=== PATIENT | male | born 1970 | race Caucasian/White ===

== ENCOUNTER 2023-02-25 08:42 | Emergency (ER) | payer OTHER ==
[2023-02-25 09:49] LABS: Hematocrit 42.9 % (39.6-49.0); MCV 91.2 fL (80-100); MPV 8.7 fL (7.6-11.3); Platelets 221 thou/uL (152-406)
[2023-02-25 10:00] LABS: Potassium 4.1 mEq/L (3.5-5.1)
--- NOTE | 2023-02-25 10:47 | RAD REPORT ---
EXAM DESCRIPTION: CT - Soft Tissue Neck W/Contr CLINICAL HISTORY: Deformity;Swelling COMPARISON: <Comparisons> TECHNIQUE All CT scans are performed using dose optimization technique as appropriate and may includ e automated exposure control or mA/KV adjustment according to patient size. FINDINGS: There is a significant abnormal appearance to the pharynx. There is irregular thickening o f the pharyngeal tissues at the level of the tongue base, greater on the right measuring to 20 mm in maximum thickness. Overall masslike lesion along the right tongue base measures 4.6 x 3.8 cm. This ab normal soft tissue thickening extends in a relatively circumferential fashion including the left aspe ct of the tongue base as well, however to a less severe extent than on the right. Several enlarged ne crotic lymph nodes are seen at level II measuring 19 mm maximally. Level II lymphadenopathy also pres ent measuring up to 11 mm. Normal appearance of the thyroid gland. IMPRESSION: Markedly irregular and abnormal soft tissue circumferential thickening at the level of t he tongue base present, greater on the right with adjacent lymphadenopathy. This is highly concerning for malignancy. Recommend direct visualization.
--- NOTE | 2023-02-25 11:07 | ER ---
Nurse's Notes [facility] Name: Ronnie Villanueva Age: 52 yrs Sex: Male : 1970 Arrival Date: 02/25/2023 Time: 08:42 Bed 20 Private MD: Diagnosis: pharyngeal mass Presentation: 02/25 09:05 Chief complaint: Patient states: has knot to right side of neck X 3 months, was seen at doctor for it and was told it was strep , he has pain when he swallows. Coronavirus screen: At this time, the client does not indicate any symptoms associated with coronavirus-19. Ebola Screen: Patient negative for fever greater than or equal to 101.5 degrees Fahrenheit, and additional compatible Ebola Virus Disease symptoms Patient denies exposure to infectious person. Patient denies travel to an Ebola-affected area in the 21 days before illness onset. No symptoms or risks identified at this time. Initial Sepsis Screen: Does the patient meet any 2 criteria? No. Patient's initial sepsis screen is negative. Does the patient have a suspected source of infection? No. Patient's initial sepsis screen is negative. Risk Assessment: Do you want to hurt yourself or someone else? Patient reports no desire to harm self or others. Onset of symptoms was November 2022. 09:05 Method Of Arrival: Ambulatory 09:05 Acuity: ROB 3 iw Historical: - Allergies: 09:06 PENICILLINS; iw - PMHx: 09:07 CVA; iw - PSHx: 09:07 None; iw - Immunization history:: Adult Immunizations. - Social history:: Smoking status: Patient reports the use of cigarette tobacco products, smokes one pack cigarettes per day. Screenin:14 [facility] ED Fall Risk Assessment (Adult) Score/Fall Risk Level 0 - 2 = Low Risk nj1 Oriented to surroundings, Maintained a safe environment, Hourly rounding (assess needs \T\ fall precautionary measures) done. Abuse screen: Denies threats or abuse. Denies injuries from another. Nutritional screening: No deficits noted. Tuberculosis screening: No symptoms or risk factors identified. Assessment: 09:15 General: Appears in no apparent distress. comfortable, Behavior is calm, cooperative, nj1 appropriate for age. 09:15 Pain: Complains of pain in throat Pain currently is 8 out of 10 on a pain scale. Neuro: nj1 Level of Consciousness is awake, alert, obeys commands, Oriented to person, place, time, situation. Cardiovascular: Patient's skin is warm and dry. Respiratory: Airway is patent Respiratory effort is even, unlabored. EENT: Reports difficulty swallowing painful. 11:05 Reassessment: No changes from previously documented assessment. Patient and/or family mb9 updated on plan of care and expected duration. Pain level reassessed. Patient is alert, oriented x 3, equal unlabored respirations, skin warm/dry/pink. Vital Signs: 09:05 BP 137 / 95; Pulse 91; Resp 16; Temp 98.1; Pulse Ox 100% ; Weight 59.87 kg; iw 11:04 BP 130 / 84; Pulse 85; Resp 16; Pulse Ox 100% on R/A; mb9 ED Course: 08:49 Patient arrived in ED. mg5 08:59 Jovanna Victoria PA-C is PHCP. sb4 08:59 Rigoberto Schaffer DO is Attending Physician. sb4 08:59 Rigoberto Schaffer DO is Attending Physician. sb4 09:06 Triage completed. iw 09:11 Marilu Luna, RN is Primary Nurse. nj1 09:15 Arm band placed on. nj1 09:15 Patient has correct armband on for positive identification. Bed in low position. Call nj1 light in reach. Provided Education on: call light, fall precautions. 09:30 Missed attempt(s): 20 gauge in left antecubital area. Bleeding controlled, band aid nj1 applied, catheter tip intact. 09:33 Inserted saline lock: 22 gauge in right antecubital area, using aseptic technique. nj1 Blood collected. 10:25 CT Soft Tissue Neck W/contr In Process Unspecified. EDMS 11:04 Rosario Mccarthy MD is Referral Physician. sb4 11:04 Ary Byrne MD is Referral Physician. sb4 11:05 No provider procedures requiring assistance completed. mb9 11:14 IV discontinued, intact, bleeding controlled, No redness/swelling at site. Pressure mb9 dressing applied. Administered Medications: No medications were administered Medication: 10:52 VIS not applicable for this client. mb9 Outcome: 11:07 Discharge ordered by . sb4 11:14 Discharged to home ambulatory, mb9 11:14 Condition: stable 11:14 Discharge instructions given to patient, Instructed on discharge instructions, follow up and referral plans. Demonstrated understanding of instructions, follow-up care, 11:14 Patient left the ED. mb9 Signatures: Dispatcher [employer] Lynn Hall, RN Jovanna Barnett, PA-C PA-C sb4 Radha Rogers RN RN mb9 Marilu Luna RN RN nj1 Makeda Sanderson mg5 Corrections: (The following items were deleted from the chart) 09:06 09:05 BP 137 / 95; Pulse 91bpm; iw iw 09:06 09:06 Allergies: No Known Allergies; iw iw 09:07 09:05 BP 137 / 95; Pulse 91bpm; Resp 16bpm; Pulse Ox 100%; Temp 98.1F; iw iw
--- NOTE | 2023-02-25 11:07 | EDPHYS ---
Physician Documentation [facility] Name: Ronnie Villanueva Age: 52 yrs Sex: Male : 1970 Arrival Date: 02/25/2023 Time: 08:42 Bed 20 Private MD: ED Physician Rigoberto Schaffer HPI: 02/25 09:48 This 52 yrs old Male presents to ER via Ambulatory with complaints of Neck Swelling. sb4 09:48 Patient states a lump on the right side of his neck for 3 months now. He states he was sb4 initially told he had strep throat and was prescribed a 10-day course of antibiotics. He states that the swelling has not improved and now it is painful for him to swallow solids and liquids. He states now he feels like the pain is radiating up to his ear. He is a smoker and endorses history of CVA. Only takes baby aspirin daily. Historical: - Allergies: 09:06 PENICILLINS; iw - PMHx: 09:07 CVA; iw - PSHx: 09:07 None; iw - Immunization history:: Adult Immunizations. - Social history:: Smoking status: Patient reports the use of cigarette tobacco products, smokes one pack cigarettes per day. ROS: 09:48 Constitutional: Negative for fever, chills, and weight loss, sb4 09:48 ENT: Positive for sore throat, Odynophagia, 09:48 Neck: Positive for swelling, of the right submandibular area, 09:48 All other systems are negative, Exam: 09:51 Constitutional: This is a well developed, well nourished patient who is awake, alert, sb4 and in no acute distress. Head/Face: Normocephalic, atraumatic. Eyes: Extra-ocular motions intact. Periorbital areas with no swelling, redness, or edema. Cardiovascular: Regular rate and rhythm with a normal S1 and S2. Respiratory: Lungs have equal breath sounds bilaterally, clear to auscultation and percussion. No rales, rhonchi or wheezes noted. No increased work of breathing, no retractions or nasal flaring. Abdomen/GI: Soft, non-tender, no distension. Skin: Warm, dry with normal turgor. Normal color with no rashes, no lesions, and no evidence of cellulitis. MS/ Extremity: Pulses equal, no cyanosis. Neurovascular intact. Full, normal range of motion. 09:51 ENT: Posterior pharynx: no acute changes, Airway: normal, no evidence of obstruction, Tonsils: are normal in appearance, Uvula: normal, midline, non-edematous, swelling, is not appreciated, erythema, is not appreciated, exudate, is not appreciated, peritonsillar mass, is not appreciated, Dental exam: dental caries, that is mild, diffusely, missing teeth, diffusely, 09:51 Neck: External neck: mass, that is small, of the right submandibular area, that is tender to palpation, Vital Signs: 09:05 BP 137 / 95; Pulse 91; Resp 16; Temp 98.1; Pulse Ox 100% ; Weight 59.87 kg; iw 11:04 BP 130 / 84; Pulse 85; Resp 16; Pulse Ox 100% on R/A; mb9 MDM: 09:15 Patient medically screened. sb4 09:51 Differential diagnosis: lymphadenopathy, dental abscess, mass. sb4 11:03 Data reviewed: vital signs, nurses notes, lab test result(s), radiologic studies, and sb4 as a result, I will discharge patient. Consideration of Admission/Observation Escalation of care including admission/observation considered. Management of patient was discussed with the following: Gin Pole Operator: called ENT, Dr. Mccarthy, awaiting call back. Counseling: I had a detailed discussion with the patient and/or guardian regarding the historical points, exam findings, and any diagnostic results supporting the discharge/admit diagnosis, lab results, radiology results, the need for outpatient follow up, an ENT specialist. 02/25 09:24 Order name: CBC w/o diff; Complete Time: 09:55 sb4 02/25 09:24 Order name: BMP; Complete Time: 10:00 sb4 02/25 09:24 Order name: CT Soft Tissue Neck W/contr; Complete Time: 10:51 sb4 02/25 09:24 Order name: IV Start; Complete Time: 09:40 sb4 Administered Medications: No medications were administered Disposition: 10:26 I was immediately available on-site in the Emergency Department for consultation in the ms3 care of the patient. Disposition Summary: 02/25/23 11:07 Discharge Ordered Notes: Location: Home sb4 Problem: an ongoing problem sb4 Symptoms: are unchanged sb4 Condition: Stable sb4 Diagnosis - pharyngeal mass sb4 Followup: sb4 - With: Rosario Mccarthy MD - When: 2 - 3 days - Reason: Further diagnostic work-up, Recheck today's complaints, Re-evaluation by your physician Followup: sb4 - With: Ary Byrne MD - When: 2 - 3 days - Reason: Further diagnostic work-up, Recheck today's complaints, Re-evaluation by your physician Discharge Instructions: - Discharge Summary Sheet sb4 - Throat Cancer sb4 Forms: - Medication Reconciliation Form sb4 - Thank You Letter sb4 - Antibiotic Education sb4 - Prescription Opioid Use sb4 - Patient Portal Instructions sb4 - Leadership Thank You Letter sb4 Signatures: Dispatcher [employer] Lynn Hall, WOODY RN iw Rigoberto Schaffer DO DO ms3 Jovanna Victoria PA-C PACash sb4 Corrections: (The following items were deleted from the chart) 09:06 09:06 Allergies: No Known Allergies; jerry
[2023-02-25 11:29] VITALS: TEMP 98.1; O2SAT 100
[2023-02-25 11:34] VITALS: BP 130/84
== END 2023-02-25 11:14 | disposition home or self-care (01) ==
LOC: ER 08:42
DX: R22.1 Localized swelling, mass and lump, neck (principal); J39.2 Other diseases of pharynx; J02.0 Streptococcal pharyngitis; Z72.0 Tobacco use; Z88.0 Allergy status to penicillin
CPT/HCPCS: 80048; 36415; 85027; 70491; 99283; Q9967

== ENCOUNTER 2023-03-29 08:46 | Day surgery (SDC) | payer OTHER ==
[2023-03-29] MEDS ORDERED: propofoL 1,000 MG/100 ML VIAL IV ONE (08:48)
[2023-03-29] MEDS ORDERED: REMIFENTANIL HCL 1 MG VIAL IV ONE (08:49)
[2023-03-29] MEDS ORDERED: SUCCINYLCHOLINE 20 MG/ML (10 ML) IV ONE (08:49)
[2023-03-29] MEDS ORDERED: ONDANSETRON 4 MG/2 ML VIAL ONE (08:55)
[2023-03-29] MEDS ORDERED: LIDOCAINE 2% MPF 5 ML VIAL ONE (08:55)
[2023-03-29] MEDS ORDERED: FENTANYL CITR 100 MCG/2 ML ONE ×2 (08:55→11:47)
[2023-03-29] MEDS ORDERED: NS 0.9% VIAL 20 ML ONE (08:56)
[2023-03-29] MEDS ORDERED: KETOROLAC 30 MG/ML INJ ONE (08:56)
[2023-03-29] MEDS ORDERED: ROCURONIUM 50 MG/5 ML VIAL IV ONE (08:56)
[2023-03-29] MEDS ORDERED: Ringers Lactate 1,000 ML IV ONE (08:56)
[2023-03-29] MEDS ORDERED: dexAMETHasone 10 MG/ML VIAL ONE (08:56)
[2023-03-29] MEDS ORDERED: MIDAZOLAM HCL 2 MG/2 ML INJ ONE (08:56)
[2023-03-29 09:00] LABS: Absolute Lymphocytes (CBC) 2.4 K/uL (0.7-4.9); Hematocrit 44.2 % (39.6-49.0); Lymphocytes % 23.1 % (15.3-44.8); MCV 92.1 fL (80-100); MPV 8.6 fL (7.6-11.3); Platelets 294 thou/uL (152-406)
--- NOTE | 2023-03-29 09:09 | RAD REPORT ---
EXAM DESCRIPTION: Isabell Hall (2 Views)03/29/2023 8:54 am CLINICAL HISTORY: Tongue cancer. Preop COMPARISON: None FINDINGS: The lungs appear clear of acute infiltrate. The heart is normal size IMPRESSION: No acute abnormalities displayed
[2023-03-29 09:18] LABS: Potassium 4.1 mEq/L (3.5-5.1)
[2023-03-29] MEDS ORDERED: OXYMETAZOLINE HCL 0.05% 15ML NAS ONE (09:28)
[2023-03-29] MEDS ORDERED: EPINEPHRINE 1 MG/ML VIAL ONE (09:29)
[2023-03-29] MEDS ORDERED: LIDOCAINE HCL/EPINEPHRINE 20 ML MDV ONE (09:29)
[2023-03-29 09:32] VITALS: O2SAT 100
[2023-03-29] MEDS ORDERED: ACETAMINOPHEN 160 MG/5 ML UCUP ONE (12:16)
[2023-03-29 13:10] VITALS: TEMP 97
[2023-03-29 13:22] VITALS: BP 115/67
--- NOTE | 2023-04-01 18:27 | OP ---
Date of Procedure: 03/29/2023 Surgeon: KELLY GOODSON Preoperative Diagnosis: Base of tongue neoplasm-uncertain behavior. 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 Procedures: 1. Flexible bronchoscopy. 2. Direct laryngoscopy with telescope and biopsies of bilateral base of tongue with frozen section analysis. Anesthesia: General endotracheal anesthesia was administered. Estimated Blood Loss: Less than 5 mL. Specimens: Bilateral base of tongue specimens was obtained with cup forceps biopsies and initial frozen section analysis revealed bilateral squamous cell carcinoma. Permanent section results forthcoming. Complications: None. Disposition: Stable. The patient tolerated procedure well. Indications For Procedure: The patient is a pleasant 52-year-old male, who presented to my outpatient clinic after presenting initially to the emergency room with severe dysphagia. A CT scan of the neck was performed while in the emergency room, which revealed soft tissue mass involving base of tongue and a necrotic right level 2 lymph node. He then presented to my office in the outpatient setting and during flexible laryngoscopy, I noticed a very large diffuse exophytic tumor involving the base of tongue, most likely involving bilateral base of tongue. These were indications to bring the patient to operative suite for the above-mentioned procedures. He understood, all questions were answered. Risks versus benefits, complications were explained in detail. A consent form was signed which was placed in the chart. Description Of Procedure: The patient was transferred from the preoperative holding area to the operative suite by Department of Anesthesia, placed on the operating room table supine, sedated and intubated in normal fashion. The patient was intubated initially with a size #8 tube. The table was rotated 90 degrees. A flexible bronchoscope was introduced into the endotracheal tube and advanced to the level of the charisse. Right and left mainstem bronchi were visualized and there was profuse amount of mucus which was suctioned and I advanced to the left lingula and smaller segment bronchioles. A moderate amount of mucus was suctioned, but I did not detect any mucosal ulceration or neoplasm. The scope was then withdrawn back to the charisse and advanced into the right mainstem bronchi, advanced to the lower segment bronchioles, and moderate amount of mucus was removed with the suction. Again, I did not detect any discrete mucosal lesions or ulcerations. The scope was completely removed and the patient's endotracheal tube was connected back to the circuit. Next, the neck was extended slightly and a dental guard was placed over the upper teeth. The size 8 ET tube was removed and a smaller ET tube was placed by the VETERINARY SURGEON and secured with tape to lower lip. A rigid laryngoscope was introduced into the right oral commissure and directed along the endotracheal tube and suspended from the [place] stand. Examination of the larynx did not reveal any evidence of mucosal lesions involving the true or false vocal folds. The patient has mild erythema of the true vocal folds, but otherwise negative exam. The areas of the epiglottis, hypopharynx, posterior glottic area, posterior pharyngeal wall, and piriform sinuses were clear. The scope was then de- suspended from the [place] stand and I withdrew the scope back to the level of the vallecula and base of tongue. There was diffuse tumor involving bilateral base of tongue and I took multiple specimens utilizing a cup forceps and this was submitted to pathology for evaluation. Initial frozen section analysis results revealed squamous cell carcinoma in bilateral base of tongue. The scope was then removed completely from the oral cavity and bimanual palpation exam of the oral cavity was performed. I did not detect any other areas of mucosal lesion or palpable mass. Right level 2 lymph node was easily palpable and measured at least 2 cm. The patient tolerated the procedure well, will be discharged home. He will follow up in 1 week for a recheck and further recommendations. GABY/JACOB Voice ID: [id number] Report ID: [id number] LILI
== END 2023-03-29 13:00 | disposition home or self-care (01) ==
LOC: OR 08:46
PROVIDERS: ATTEND Otolaryngology Facial Plastic Surgery
PROC: 0CBM8ZX Excision of Pharynx, Via Natural or Artificial Opening Endoscopic, Diagnostic (ICD-10-PCS; principal; 2023-03-29 09:15)
PROC: 0BJ08ZZ Inspection of Tracheobronchial Tree, Via Natural or Artificial Opening Endoscopic (ICD-10-PCS; 2023-03-29 09:15)
DX: C01 Malignant neoplasm of base of tongue (principal); Z86.73 Personal history of transient ischemic attack (TIA), and cerebral infarction without residual deficits
CPT/HCPCS: 85025; 80048; 36415; 88331 ×2; 88305; 71046; 31536; 31622; J2704; A4216; J2001; J2250; J3010 ×2; J1100; J0171; J2405; J3490; J7120; 88332

== ENCOUNTER 2023-06-16 12:59 | Emergency (ER) | payer OTHER ==
[2023-06-16] MEDS ORDERED: IPRATROPIUM BROM 0.5MG/2.5ML ONE (13:21)
[2023-06-16] MEDS ORDERED: THIAMINE 200 MG/2 ML INJ ONE (13:21)
[2023-06-16] MEDS ORDERED: NA CHLORIDE 0.9% 500 ML ONE (13:21)
[2023-06-16] MEDS ORDERED: ALBUTEROL 2.5 MG/3 ML NEB SOL ONE (13:21)
[2023-06-16] MEDS ORDERED: NA CHLORIDE 0.9% 1,000 ML ONE (13:22)
[2023-06-16 13:49] LABS: Absolute Lymphocytes (CBC) 0.1 K/uL (0.7-4.9); Absolute Monocytes 0.5 K/uL (0.1-1.3); Absolute Neutrophil 1.6 K/uL (1.8-8.0); Hematocrit 33.5 % (39.6-49.0); Lymphocytes % 2.5 % (15.3-44.8); MCH 32.4 pg (27.0-35.0); MCHC 32.9 g/dL (32.0-36.0); MCV 98.5 fL (80-100); MPV 8.4 fL (7.6-11.3); Monocytes % 25.2 % (3.3-12.3); Neutrophils % 72.3 % (41.7-73.7); Nucleated Red Blood Cells % 0.4 % (0-0); Platelets 215 thou/uL (152-406); Red Cell Distribution Width 17.6 % (12.1-15.2)
[2023-06-16] MEDS ORDERED: Magnesium Sulfate 2gm IVPB 2 G/50 ML BAG IV ONE (13:55)
[2023-06-16 13:56] LABS: PT Prothrombin Time 17.9 SECONDS (9.5-12.5); PTT, Activated Partial Thromb 32.7 SECONDS (24.3-36.9); Protime INR 1.65
[2023-06-16 14:00] LABS: Arterial Blood Carboxyhemoglob 0.9 % (0-1.5); Blood Gas Oxyhemoglobin 86.9 % (94-97); Blood Gas THB 11.4 g/dl (12-18); Blood O2 Saturation 89.1 % (92-98.5)
[2023-06-16 14:17] LABS: Albumin 2.6 g/dL (3.4-5.0); Albumin/Globulin Ratio 0.5 (1.1-1.8); Anion Gap 13.3 mEq/L (5.0-15.0); Bilirubin Total 0.6 mg/dL (0.2-1.0); Potassium 4.3 mEq/L (3.5-5.1); Protein, Total 7.6 g/dL (6.4-8.2)
--- NOTE | 2023-06-16 14:37 | ER ---
Nurse's Notes [facility] Name: Ronnie Villanueva Age: 53 yrs Sex: Male : 1970 Arrival Date: 06/16/2023 Time: 12:59 Bed 20 Private MD: Diagnosis: acute hypoxic and hypercapneic respiratory failure;Adult failure to thrive Presentation: 06/15 13:00 Chief complaint: EMS states: FAILURE TO THRIVE. ONLY ETOH, NO FOOD, x1 WK SINCE bp STARTING XRT. Coronavirus screen: At this time, the client does not indicate any symptoms associated with coronavirus-19. Ebola Screen: No symptoms or risks identified at this time. Initial Sepsis Screen: Does the patient meet any 2 criteria? Altered Mental Status. HR > 90 bpm. Yes Does the patient have a suspected source of infection? No. Patient's initial sepsis screen is negative. Risk Assessment: Do you want to hurt yourself or someone else? Patient reports no desire to harm self or others. Onset of symptoms is unknown. Care prior to arrival: IV initiated. 20 GA, in the left wrist, Glucose check: 172. 13:00 Method Of Arrival: EMS: [facility] bp 13:00 Acuity: ROB 2 bp Triage Assessment: 13:02 General: Appears distressed, ill, unkempt, Behavior is anxious, CONFUSED. Pain: Denies bp pain. Historical: - Allergies: 13:02 PENICILLINS; bp - PMHx: 13:02 CVA; THROAT CANCER (CVA); Alcoholism; bp - Immunization history:: Adult Immunizations unknown. - Social history:: Smoking status: Patient reports the use of cigarette tobacco products, unknown amount. Screenin:03 [facility] ED Fall Risk Assessment (Adult) History of falling in the last 3 months, bp including since admission No falls in past 3 months (0 pts). Abuse screen: Denies threats or abuse. Denies injuries from another. Nutritional screening: No deficits noted. Tuberculosis screening: No symptoms or risk factors identified. Assessment: 13:03 General: SEE TRIAGE NOTE. bp 14:03 Reassessment: No changes from previously documented assessment. Patient is alert, bp oriented x 3, equal unlabored respirations, skin warm/dry/pink. 15:00 Reassessment: BIPAP IN PLACE 18/8, 18 RATE, FIO2 50%. bp 16:00 Reassessment: ADMIT DEFERRED FOR TRANSFER. bp 17:00 Reassessment: CT PE ON HOLD PENDING ADVANCED LINE PLACEMENT. Respiratory: Airway is bp patent Respiratory effort is labored, Patient placed on BiPAP: Inspiratory Pressure: 18 Expiratory (EPAP) Pressure: 8 FiO2%: 50 Respiratory Rate: 18. 18:13 Reassessment: pt to CT via stretcher with NRB mask. kc6 18:42 General: PT RETURNED FROM CT. bp 19:00 General: Appears in no apparent distress. comfortable, well developed, Behavior is pf1 calm, cooperative, appropriate for age, quiet. 19:00 Pain: Complains of pain in mouth Pain currently is 5 out of 10 on a pain scale. Neuro: pf1 No deficits noted. Level of Consciousness is awake, alert, obeys commands, Oriented to person, place, time, situation. Cardiovascular: Capillary refill < 3 seconds Patient's skin is warm and dry. Rhythm is sinus tachycardia. Respiratory: Reports shortness of breath at rest on exertion Airway is patent Respiratory effort is even, labored, Respiratory pattern is symmetrical, tachypnea Breath sounds are clear bilaterally. GI: Abdomen is flat, non-distended, Bowel sounds Parent/caregiver reports the patient having decrease in appetite. : No deficits noted. No signs and/or symptoms were reported regarding the genitourinary system. EENT: Reports pain in mouth and throat pain. 20:00 Reassessment: Patient appears in no apparent distress at this time. No changes from pf1 previously documented assessment. Patient and/or family updated on plan of care and expected duration. Pain level reassessed. 20:50 Reassessment: patient keeps pulling off BIPAP mask, not maintaining oxygen saturation. pf1 Notified Dr. Barton and respiratory. 21:00 Reassessment: Patient appears in no apparent distress at this time. Patient and/or pf1 family updated on plan of care and expected duration. Pain level reassessed. 21:05 Reassessment: patient report given to Donaldo with [facility]. pf1 21:11 Reassessment: Patient maintaining oxygenation saturation at 100% on BIPAP. Patient pf1 being transferred at this time with [facility]. Vital Signs: 13:00 BP 130 / 90; Pulse 140; Resp 24; Temp 97.5; Pulse Ox 82% on R/A; bp 13:18 Weight 54 kg (M); as6 14:01 BP 151 / 94; Pulse 130; Resp 32; Pulse Ox 100% on BiPAP; FiO2 50 %; bp 15:00 BP 109 / 80; Pulse 106; Resp 32; Pulse Ox 100% ; bp 16:00 BP 124 / 84; Pulse 121; Resp 30; Pulse Ox 100% ; bp 17:13 BP 119 / 75; Pulse 111; Resp 21 S; Pulse Ox 99% on BiPAP; kc6 17:50 BP 108 / 80; Pulse 104; Resp 28; Pulse Ox 100% ; bp 18:42 BP 124 / 79; Pulse 112; Resp 28; Pulse Ox 100% ; bp 19:30 BP 115 / 84; Pulse 106; Resp 27; Temp 98; Pulse Ox 100% on BiPAP; Pain 5/10; pf1 20:30 BP 131 / 78; Pulse 110; Resp 30; Pulse Ox 99% on BiPAP; pf1 21:20 BP 114 / 68; Pulse 115; Resp 28; Temp 98.1; Pulse Ox 97% on BiPAP; pf1 19:30 Pain Scale: Adult pf1 ED Course: 13:00 Patient arrived in ED. bp 13:02 Triage completed. bp 13:02 Arm band placed on. bp 13:03 Patient has correct armband on for positive identification. bp 13:03 Maintain EMS IV. Dressing intact. Good blood return noted. Site clean \T\ dry. Gauge \T\ bp site: 20 GA LEFT WRIST. 13:06 [facility]ovanna Victoria [facility]C [facility]. sb4 13:06 Rigoberto Schaffer DO is Attending Physician. sb4 13:33 Mick Valdez, RN is Primary Nurse. bp 13:33 ABG Sent. bp 13:33 Blood Culture Adult (2) Sent. bp 13:33 CBC with Diff Sent. bp 13:33 CMP Sent. bp 13:33 Lactate w/ 2H reflex if indic. Sent. bp 13:33 Protime (+inr) Sent. bp 13:33 Ptt, Activated Sent. bp 13:34 EKG done, by ED staff, reviewed by Jovanna Victoria PA-C. Inserted saline lock: 22 gauge in bp right wrist, using aseptic technique. Blood collected. 14:02 Client placed on continuous cardiac and pulse oximetry monitoring. NIBP monitoring bp applied. monitor car operator on. 14:02 O2 via BIPAP 18/8, RATE 18, FIO2 50%. bp 14:35 Aida Garcia MD is Hospitalizing Provider. sb4 15:03 Chest Single View XRAY In Process Unspecified. EDMS 15:15 SARS RAPID Sent. bp 15:15 Flu Sent. bp 15:15 COVID swab sent to lab. Flu and/or RSV swab sent to lab. bp 16:01 Provided Education on: N/A. bp 16:01 No provider procedures requiring assistance completed. Patient admitted, IV remains in bp place. 16:05 initiated a transfer with Estrella from the [facility]. eb 16:34 connected the spreader box operator ammonia distiller for [facility] with Jovanna LAZARO for patient eb transfer consultation. 17:13 Missed attempt(s): 22 gauge in right forearm. Missed attempt(s): 20 gauge in left kc6 forearm. Missed attempt(s): 20 gauge in left forearm. 17:40 Accessed peripheral vein via ultrasound, utilizing dynamic ultrasound technique Blood as6 collected. using per hospital protocol. Clean \T\ dry. Dressing intact. Good blood return. Flushes easily. 18g 10cm midline to right upper arm . 17:49 Accessed 18 GA R CEPHALIC MIDLINE. bp 18:35 Chest For PE Angio CT In Process Unspecified. EDMS 18:36 Soft Tissue Neck W/Contr CT In Process Unspecified. EDMS 18:58 Received call from [facility] on patient CT results. Results pending. ty 19:07 Called [facility], spoke with Lissa, on patient update. CT results in. ty 19:49 [facility] called for transport. 1.5 - 2 Hour wait time. ty 19:57 [facility] called for transport. ETA 30 Minutes. ty Administered Medications: 13:34 Drug: NS 0.9% IV (30 ml/kg) 30 ml/kg IV at bolus once; Sepsis Protocol Route: IV; Rate: bp bolus; Site: right wrist; 14:45 Follow up: IV Status: Completed infusion; IV Intake: 1620ml bp 13:34 Drug: Thiamine IV 100 mg IV at calculated rate once Route: IV; Rate: calculated rate; bp Site: right wrist; 14:45 Follow up: IV Status: Completed infusion; IV Intake: 100ml bp 13:34 Drug: DuoNeb Nebulize (3:1) (2.5 mg - 0.5 mg) 3 ml Nebulizer once Route: Nebulizer; bp 14:45 Follow up: Response: No adverse reaction bp 13:59 Drug: Magnesium Sulfate IVPB 2 grams IVPB once over 2 hrs Route: IVPB; Infused Over: 2 bp hrs; Site: right wrist; 14:54 Follow up: IV Status: Completed infusion; IV Intake: 50ml bp 14:53 Drug: levofloxacin IVPB 750 mg 150 ml IVPB once over 90 mins Volume: 150 ml; Route: bp IVPB; Infused Over: 90 mins; Site: right wrist; 16:01 Follow up: IV Status: Completed infusion; IV Intake: 150ml bp 19:47 Drug: Clindamycin IVPB 600 mg IVPB once over 30 mins; (mix in 50 mL) Route: IVPB; pf1 Infused Over: 30 mins; Site: right upper arm; 20:17 Follow up: Response: No adverse reaction; Marked relief of symptoms; IV Status: pf1 Completed infusion; IV Intake: 50ml Medication: 16:01 VIS not applicable for this client. bp Intake: 14:45 IV: 100ml; Total: 100ml. bp 14:45 IV: 1620ml; Total: 1720ml. bp 14:54 IV: 50ml; Total: 1770ml. bp 16:01 IV: 150ml; Total: 1920ml. bp 20:17 IV: 50ml; Total: 1970ml. pf1 Outcome: 14:36 Decision to Hospitalize by Provider. sb4 15:59 Admitted to ER Hold. Please see [facility] for further documentation. bp 15:59 Condition: stable 15:59 Instructed on the need for admit, 16:04 ER care complete, transfer ordered by . sb4 20:09 Transferred by ground EMS to [facility], Transfer form completed. pf1 X-rays sent w/ patient. Note: Patient report given to WOODY Burton at [facility] 21:28 Patient left the ED. ty Signatures: Dispatcher [employer] EDMS Mick Valdez RN RN bp Botello, Elizabeth eb Slawson, Ashby, RN RN as6 Anjelica Lara RN RN kc6 Brown, CHARLEY Nugent PA-C sb4 Rosenda Myers RN RN pf1 Maico Cox ty Corrections: (The following items were deleted from the chart) 13:35 13:00 BP 130 / 90; Pulse 140bpm; Resp 24bpm; Pulse Ox 92% RA; Temp 97.5F; bp bp 20:02 19:49 [facility] called for transport. ty ty 06/16 07:24 03 20:00 Reassessment: Patient appears in no apparent distress at this time. No pf1 changes from previously documented assessment. Patient and/or family updated on plan of care and expected duration. Pain level reassessed. Patient is alert, oriented x 3, equal unlabored respirations, skin warm/dry/pink. pf1
--- NOTE | 2023-06-16 14:37 | EDPHYS ---
Physician Documentation [facility] Name: Ronnie Villanueva Age: 53 yrs Sex: Male : 1970 Arrival Date: 06/16/2023 Time: 12:59 Bed 20 Private MD: ED Physician Rigoberto Schaffer HPI: 06/15 13:12 This 53 yrs old Male presents to ER via EMS with complaints of FAILURE TO THRIVE. 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 Family states that patient has not been eating any food the past week, only drinking copious amounts of mouthwash. Patient presents tachycardic, tachypneic, hypoxic, frail. Historical: - Allergies: 13:02 PENICILLINS; bp - PMHx: 13:02 CVA; THROAT CANCER (CVA); Alcoholism; bp - Immunization history:: Adult Immunizations unknown. - Social history:: Smoking status: Patient reports the use of cigarette tobacco products, unknown amount. ROS: 14:29 Cardiovascular: Negative for chest pain, palpitations, and edema, sb4 14:29 Constitutional: Positive for malaise, poor PO intake, 14:29 Respiratory: Positive for shortness of breath, 14:29 All other systems are negative, Exam: 14:29 Head/Face: Normocephalic, atraumatic. sb4 14:29 Constitutional: The patient appears in no acute distress, awake, frail, unkempt, 14:29 ENT: Mouth: Oral mucosa: dry, 14:37 Cardiovascular: Rate: tachycardic, sb4 14:37 Respiratory: mild respiratory distress is noted, Breath sounds: are clear throughout, Respiratory rate: 32 14:50 Abdomen/GI: Soft, non-tender, no distension. MS/ Extremity: Pulses equal, no sb4 cyanosis. Neurovascular intact. Full, normal range of motion. 14:50 Skin: dry/flaky neck. 14:50 Neuro: Mentation: responsive to voice able to follow commands, sleepy, Vital Signs: 13:00 BP 130 / 90; Pulse 140; Resp 24; Temp 97.5; Pulse Ox 82% on R/A; bp 13:18 Weight 54 kg (M); as6 14:01 BP 151 / 94; Pulse 130; Resp 32; Pulse Ox 100% on BiPAP; FiO2 50 %; bp 15:00 BP 109 / 80; Pulse 106; Resp 32; Pulse Ox 100% ; bp 16:00 BP 124 / 84; Pulse 121; Resp 30; Pulse Ox 100% ; bp 17:13 BP 119 / 75; Pulse 111; Resp 21 S; Pulse Ox 99% on BiPAP; kc6 17:50 BP 108 / 80; Pulse 104; Resp 28; Pulse Ox 100% ; bp 18:42 BP 124 / 79; Pulse 112; Resp 28; Pulse Ox 100% ; bp 19:30 BP 115 / 84; Pulse 106; Resp 27; Temp 98; Pulse Ox 100% on BiPAP; Pain 5/10; pf1 20:30 BP 131 / 78; Pulse 110; Resp 30; Pulse Ox 99% on BiPAP; pf1 21:20 BP 114 / 68; Pulse 115; Resp 28; Temp 98.1; Pulse Ox 97% on BiPAP; pf1 19:30 Pain Scale: Adult pf1 MDM: 13:06 Patient medically screened. 4 14:35 Data reviewed: vital signs, nurses notes, EMS record, lab test result(s), EKG, sb4 radiologic studies, I have discussed the patient's presentation/case with the attending Emergency Department Physician; and as a result, I will admit patient. Consideration of Admission/Observation Patient was admitted/placed on observation. Counseling: I had a detailed discussion with the patient and/or guardian regarding the historical points, exam findings, and any diagnostic results supporting the discharge/admit diagnosis, the presence of at least one elevated blood pressure reading (>120/80) during this emergency department visit, lab results, radiology results, the need for further work-up and treatment in the hospital. 18:19 ED course: patient requires transfer as we are at capacity. spoke with payroll coordinator at [address] will accept patient contingent upon negative airway obstruction/compromise on CT. 06/16 10:09 ED course: Source of infection identified at [address]- pneumonia. sepsis protocol 4 completed prior- blood cultures, lactate, PT/INR, PTT. antibiotics and fluids administered in timely manner. 06/15 13:07 Order name: Blood Culture Adult (2) 4 06/15 13:07 Order name: CBC with Diff; Complete Time: 16:18 sb4 06/15 13:07 Order name: CMP; Complete Time: 14:19 sb4 06/15 13:07 Order name: Lactate w/ 2H reflex if indic.; Complete Time: 14:16 sb4 06/15 13:07 Order name: Protime (+inr); Complete Time: 13:58 sb4 06/15 13:07 Order name: Ptt, Activated; Complete Time: 13:58 sb4 06/15 13:07 Order name: ABG; Complete Time: 14:05 sb4 06/15 13:14 Order name: ETOH Level; Complete Time: 14:08 sb4 06/15 13:15 Order name: BETA HYDROXYBUTYRATE; Complete Time: 14:24 sb4 06/15 14:55 Order name: SARS RAPID; Complete Time: 15:44 sb4 06/15 14:55 Order name: Flu; Complete Time: 15:44 sb4 06/15 16:04 Order name: ABG; Complete Time: 17:03 sb4 06/15 16:07 Order name: Troponin High Sensitivity; Complete Time: 18:09 sb4 06/15 16:07 Order name: BNP; Complete Time: 18:09 sb4 06/15 16:07 Order name: DD; Complete Time: 18:06 sb4 06/15 16:17 Order name: Manual Differential; Complete Time: 16:18 EDMS 06/15 18:21 Order name: Lactate Sepsis 2 HR Follow-up; Complete Time: 18:24 EDMS 06/15 13:16 Order name: Chest Single View XRAY; Complete Time: 15:44 sb4 06/15 16:08 Order name: Chest For PE Angio CT; Complete Time: 19:00 sb4 06/15 16:19 Order name: Soft Tissue Neck W/Contr CT; Complete Time: 19:00 sb4 06/15 13:07 Order name: EKG; Complete Time: 13:07 sb4 06/15 13:07 Order name: Accucheck; Complete Time: 13:33 sb4 06/15 13:07 Order name: Cardiac monitoring; Complete Time: 13:33 sb4 06/15 13:07 Order name: EKG - Nurse/Tech; Complete Time: 13:33 sb4 06/15 13:07 Order name: IV Saline Lock - Large Bore; Complete Time: 13:33 sb4 06/15 13:07 Order name: Labs collected and sent; Complete Time: :33 sb4 06/15 13:07 Order name: O2 Per Protocol; Complete Time: : sb4 06/15 13:07 Order name: O2 Sat Monitoring; Complete Time: :33 sb4 06/15 13:07 Order name: Vital Signs; Complete Time: :33 sb4 EC/30 14:37 Rate is 143 beats/min. Rhythm is regular, Sinus tachycardia. VA interval is normal at sb4 128 msec. QRS interval is normal at 84 msec. QT interval is normal at 280 msec. No Q waves. T waves are Normal. No ST changes noted. Clinical impression: Sinus tachycardia and No evidence of ischemia. Interpreted by me. Reviewed by me. Administered Medications: 13:34 Drug: NS 0.9% IV (30 ml/kg) 30 ml/kg IV at bolus once; Sepsis Protocol Route: IV; Rate: bp bolus; Site: right wrist; 14:45 Follow up: IV Status: Completed infusion; IV Intake: 1620ml bp 13:34 Drug: Thiamine IV 100 mg IV at calculated rate once Route: IV; Rate: calculated rate; bp Site: right wrist; 14:45 Follow up: IV Status: Completed infusion; IV Intake: 100ml bp 13:34 Drug: DuoNeb Nebulize (3:1) (2.5 mg - 0.5 mg) 3 ml Nebulizer once Route: Nebulizer; bp 14:45 Follow up: Response: No adverse reaction bp 13:59 Drug: Magnesium Sulfate IVPB 2 grams IVPB once over 2 hrs Route: IVPB; Infused Over: 2 bp hrs; Site: right wrist; 14:54 Follow up: IV Status: Completed infusion; IV Intake: 50ml bp 14:53 Drug: levofloxacin IVPB 750 mg 150 ml IVPB once over 90 mins Volume: 150 ml; Route: bp IVPB; Infused Over: 90 mins; Site: right wrist; 16:01 Follow up: IV Status: Completed infusion; IV Intake: 150ml bp 19:47 Drug: Clindamycin IVPB 600 mg IVPB once over 30 mins; (mix in 50 mL) Route: IVPB; pf1 Infused Over: 30 mins; Site: right upper arm; 20:17 Follow up: Response: No adverse reaction; Marked relief of symptoms; IV Status: pf1 Completed infusion; IV Intake: 50ml Disposition: 14:50 I was immediately available on-site in the Emergency Department for consultation in the ms3 care of the patient. Disposition Summary: 06/16/23 16:04 Transfer Ordered Notes: Transfer Location: [facility] sb4 Reason: Capacity sb4 Condition: Fair(06/16/23 16:04) sb4 Problem: new(06/16/23 16:04) sb4 Symptoms: are unchanged(06/16/23 16:04) sb4 Accepting Physician: hospitalist(06/16/23 21:28) ty Diagnosis - acute hypoxic and hypercapneic respiratory failure sb4 - Adult failure to thrive(06/16/23 16:04) sb4 Forms: - Medication Reconciliation Form sb4 - SBAR form sb4 Critical care time excluding procedures: 14:50 Critical care time: Bedside Care: 15 minutes, Consultation: 10 minutes, Family sb4 Intervention: 10 minutes. Total time: 35 minutes Signatures: Dispatcher [employer] EDMS Ricky Helton PA PA cp Peltier, Brian, RN RN Valarie Velazquez Marcus, DO DO ms3 Jovanna Victoria PA-C PA-Hailey sb4 Rosenda Myers RN RN pf1 Maico Cox Corrections: (The following items were deleted from the chart) 13:07 13:07 BLOOD CULTURE*+BA.LAB.BRZ ordered. EDMS EDMS 13:07 13:07 CBC+H.LAB.BRZ ordered. EDMS EDMS 13:07 13:07 COMPREHENSIVE METABOLIC PANEL+C.LAB.BRZ ordered. EDMS EDMS 13:07 13:07 LACTATE+C.LAB.BRZ ordered. EDMS EDMS 13:07 13:07 PROTIME (+INR)+COAG.LAB.BRZ ordered. EDMS EDMS 13:07 13:07 PTT, ACTIVATED+COAG.LAB.BRZ ordered. EDMS EDMS 13:37 13:37 BiPap ([employer] Only)+RC.RAD.BRZ ordered. EDMS EDMS 15:48 14:36 Telemetry/MedSurg (Inpatient) sb4 eb 15:48 14:36 sb4 eb 16:01 15:48 [facility] ER HOLD eb eb 16:01 15:48 ERHOLD- eb eb 16:03 14:36 Inpatient Admission sb4 sb4 16:03 14:36 Aida Garcia sb4 sb4 16:03 14:36 Fair sb4 sb4 16:03 14:36 new sb4 sb4 16:03 14:36 are unchanged sb4 sb4 16:03 14:36 Standard sb4 sb4 16:03 14:36 Acute respiratory failure with hypercapnia sb4 sb4 16:03 14:36 Acute respiratory failure with hypoxia sb4 sb4 16:03 14:36 Adult failure to thrive sb4 sb4 16:03 16:01 Telemetry/MedSurg (Inpatient) eb sb4 16:03 16:01 eb sb4 16:20 16:20 Soft Tissue Neck W/Contr+CT.RAD.BRZ ordered. EDMS EDMS 18:20 18:19 ED course: patient requires transfer as we are at capacity. spoke with sb4 payroll coordinator at [facility] who will accept patient contingent upon negative airway obstruction on CT. sb4 21:28 16:04 hospitalist sb4 ty
[2023-06-16] MEDS ORDERED: Levofloxacin 750mg IV 750 MG/150 ML BAG IV ONE (14:48)
--- NOTE | 2023-06-16 15:11 | RAD REPORT ---
EXAM DESCRIPTION: [place] Single View06/16/2023 3:02 pm CLINICAL HISTORY: sob COMPARISON: March 2023 FINDINGS: The lungs appear clear of acute infiltrate. The heart is normal size IMPRESSION: No acute abnormalities displayed
[2023-06-16 15:35] LABS: SARS-CoV-2 Antigen CONTROL BLUE LINE VIS/BG OK; SARS-CoV-2 Antigen Rapid Res Negative (Negative)
[2023-06-16 16:15] LABS: Differential Total Cells Count 100; Lymphocytes 8 % (15-42); Monocytes 10 % (0-10); Segmented Neutrophils 80 % (40-80)
[2023-06-16 16:16] LABS: Anisocytosis 1+; Blood Morphology Comment NOTED (NOT SEEN); Platelet Estimate INCR; Poikilocytosis 1+
[2023-06-16 16:56] LABS: Arterial Blood Carboxyhemoglob 0.6 % (0-1.5); Blood Gas Oxyhemoglobin 93.8 % (94-97); Blood O2 Saturation 95.9 % (92-98.5)
[2023-06-16 18:08] LABS: Troponin High Sensitivity 31.4 pg/mL (<58.9)
--- NOTE | 2023-06-16 18:55 | RAD REPORT ---
EXAM DESCRIPTION: CT - Soft Tissue Neck W/Contr - 06/16/2023 6:34 pm CLINICAL HISTORY: Neck pain. Tongue neoplasm COMPARISON: February 2023 TECHNIQUE: Computed axial tomography of the neck was obtained. 50 cc Isovue 300 was administered in travenously. Coronal and sagittal reconstruction was performed. All CT scans are performed using dose optimization technique as appropriate and may include automated exposure control or mA/KV adjustment according to patient size. FINDINGS: Ill defined right tongue base mass has decreased in size since February 2023. Remainder of the pharynx, larynx and subglottic trachea unremarkable The parotid, submandibular and thyroid glands appear unremarkable. Right neck lymph nodes have decreased in size. Largest is necrotic measuring 2.3 x 1.3 centimeters No fluid within the sinuses/mastoids IMPRESSION: Decrease in the size of the ill-defined right tongue base mass Decrease in the right neck lymphadenopathy
--- NOTE | 2023-06-16 19:00 | RAD REPORT ---
EXAM DESCRIPTION: CT - Chest For Pe Angio - 06/16/2023 6:33 pm CLINICAL HISTORY: Chest pain and shortness of breath COMPARISON: None. TECHNIQUE: Dynamically enhanced axial 3 mm thick images of the chest were obtained during administra tion of 100 mL Isovue 370 IV contrast. Coronal and oblique reconstruction images were generated and r eviewed. Exam utilizes a protocol for optimal evaluation of pulmonary arterial tree. Maximum intensity projections 3D imaging was utilized All CT scans are performed using dose optimization technique as appropriate and may include automated exposure control or mA/KV adjustment according to patient size. FINDINGS: A pulmonary embolus is not seen. A thoracic aortic aneurysm is not noted. A pleural effusion is not seen. A pericardial effusion is not seen. Prominent bilateral tree-in-bud opacities within the lungs. COPD IMPRESSION: Negative for a pulmonary embolism. Prominent bilateral tree-in-bud opacities within the lungs may indicate an atypical pneumonia or aspi ration
[2023-06-16] MEDS ORDERED: CLINDAMYCIN 600MG/D5W 50 ML IV ONE (19:44)
[2023-06-16 22:38] VITALS: TEMP 97.5; O2SAT 100
[2023-06-16 23:08] VITALS: BP 124/79
--- NOTE | 2023-06-18 13:45 | EKG ---
Test Date: 2023-06-16 Test Time: 12:10:10 Hardboard Press Operator: BP MEASUREMENT RESULTS: Intervals: Rate: 143 WV: 128 QRSD: 84 QT: 280 QTc: 432 Kermit: P: 82 WV: 128 QRS: 53 T: 75 INTERPRETIVE STATEMENTS: Sinus tachycardia with fusion complexes Otherwise normal ECG No previous ECG available for comparison Electronically Signed On 06-18-23 13:37:50 CDT by Chucky Baker
== END 2023-06-16 21:28 | disposition short-term general hospital (02) ==
LOC: ER 12:59
DX: J96.01 Acute respiratory failure with hypoxia (principal); J96.02 Acute respiratory failure with hypercapnia; R62.7 Adult failure to thrive; C32.9 Malignant neoplasm of larynx, unspecified; F10.20 Alcohol dependence, uncomplicated; Z86.73 Personal history of transient ischemic attack (TIA), and cerebral infarction without residual deficits; Z88.0 Allergy status to penicillin; Z11.52 Encounter for screening for COVID-19
CPT/HCPCS: 93005; 87040 ×2; 85025; 36415; 85610; 85379; 83605 ×2; 85730; 84484; 80053; 82010; 83880; 87804 ×2; 70491; 71275; 71045; 94640; 82805 ×2; 99285; 82077; 87811; 36600 ×2; 94660 ×2; Q9967; J3411; J3475; J7613; J7644; J7040; J7030